=== PATIENT | female | born 1985 | race Caucasian/White ===

== ENCOUNTER 2017-11-22 16:45 | Emergency (ER) | payer OTHER ==
[~2017-11-22] VITALS: Ht 167.6 cm; Wt 90.7 kg
[2017-11-22 16:54] VITALS: BP 122/81
[2017-11-22] MEDS ORDERED: IBUPROFEN 600600 M1 PO (17:20)
[2017-11-22] MEDS ORDERED: ULTRAM 50MG TAB50 MG PO (17:20)
== END 2017-11-22 20:00 | disposition home or self-care (01) ==
LOC: ER 16:45
DX: S82.141A Displaced bicondylar fracture of right tibia, initial encounter for closed fracture (principal); S80.01XA Contusion of right knee, initial encounter; W01.0XXA Fall on same level from slipping, tripping and stumbling without subsequent striking against object, initial encounter; Y93.89 Activity, other specified; Y92.89 Other specified places as the place of occurrence of the external cause; Y99.8 Other external cause status